=== PATIENT | male | born 1965 | race Two or more races ===

== ENCOUNTER 2020-10-16 16:26 | Emergency (ER) | payer MEDICAID ==
[~2020-10-16] VITALS: Ht 160 cm; Wt 106.6 kg
[2020-10-16 16:30] VITALS: BP 148/100
== END 2020-10-16 17:19 | disposition home or self-care (01) ==
LOC: ER 16:26
DX: H10.31 Unspecified acute conjunctivitis, right eye (principal)

== ENCOUNTER 2021-12-24 21:51 | Inpatient (IN) | payer MEDICAID ==
[~2021-12-24] VITALS: Ht 165.1 cm; Wt 90.9 kg
[2021-12-24 22:27] LABS: Basophils # (auto) 0.1 10 ^3/uL (0-0.2); Basophils % (auto) 1.2 % (0.0-2.0); Eosinophils # (auto) 0.4 10 ^3/uL (0-0.8); Eosinophils % (auto) 3.8 % (0.0-7.0); Hematocrit 45.4 % (41.0-53.0); Hemoglobin 15.1 g/dL (13.5-17.5); Lymphocytes # (auto) 5.3 10 ^3/uL (0.4-5.4); Lymphocytes % (auto) 51.1 % (10.0-50.0); Mean Corpuscular Hemoglobin 27.8 pg (28.0-32.0); Mean Corpuscular Hgb Conc. 33.3 g/dL (32.0-36.0); Mean Corpuscular Volume 83.5 fL (80.0-100.0); Monocytes # (auto) 0.7 10 ^3/uL (0-1.3); Monocytes % (auto) 7.2 % (0.0-12.0); Neutrophils # (auto) 3.8 10 ^3/uL (1.6-8.6); Neutrophils % (auto) 36.7 % (37.0-80.0); Nucleated Red Blood Cells % 0.1 %; Red Blood Cells 5.43 10^6/uL (4.5-5.90); White Blood Cell 10.3 10^3/uL (4.4-10.8)
[2021-12-24 22:53] LABS: Potassium 3.1 mmol/L (3.5-5.1)
[2021-12-24 22:57] LABS: Albumin 3.9 g/dL (3.4-5.0); BUN/Creatinine Ratio 17.2; Calcium 8.7 mg/dL (8.5-10.1)
[2021-12-24 23:03] LABS: Bilirubin, Total 0.3 mg/dL (0.2-1.0)
[2021-12-25 01:41] LABS: Urine Bacteria NONE SEEN /hpf (None Seen); Urine Blood Negative /uL (Negative); Urine Hyaline Cast FEW /lpf (0 - 2); Urine Mucus FEW (None Seen); Urine WBC 1 /hpf (0 - 3)
[2021-12-25] MEDS ORDERED: TEMAZEPAM 15 MG CAP PO PRN (03:00)
[2021-12-25] MEDS ORDERED: ONDANSETRON HCL 4 MG/2 ML VIAL IV PRN (03:00)
[2021-12-25] MEDS ORDERED: MORPHINE SULFATE INJ 2 MG/ml SYRG IV PRN (03:00)
[2021-12-25] MEDS ORDERED: ACETAMINOPHEN 325 MG TAB PO PRN (03:00)
[2021-12-25] MEDS ORDERED: NITROGLYCERIN 0.4 MG SL TAB SL PRN (03:00)
[2021-12-25 08:05] VITALS: BP 115/81
[2021-12-25 09:00] VITALS: BP 115/81
[2021-12-25] MEDS ORDERED: ASPirin 81 mg TAB PO SCH (10:00)
[2021-12-25] MEDS ORDERED: PANTOPRAZOLE 40 MG TAB PO SCH (10:00)
[2021-12-25 13:00] VITALS: BP 120/74
== END 2021-12-25 14:08 | disposition home or self-care (01) | DRG 204 ==
LOC: ER 21:51 → TELE 12-25 02:47 → TELE-EAST 12-25 08:10
PROVIDERS: ADMIT Nurse Practitioner; ATTEND Internal Medicine
DX: R55 Syncope and collapse (principal); I95.9 Hypotension, unspecified; E03.9 Hypothyroidism, unspecified; Z20.822 Contact with and (suspected) exposure to COVID-19; E66.9 Obesity, unspecified; E87.6 Hypokalemia; R00.1 Bradycardia, unspecified; Z68.33 Body mass index [BMI] 33.0-33.9, adult
CPT/HCPCS: 36415; 70450; 71045; 80053; 81001; 84443; 84484; 85025; 93306; 93886; G0378

== ENCOUNTER 2022-06-23 13:49 | Emergency (ER) | payer MEDICAID ==
[~2022-06-23] VITALS: Ht 167.6 cm; Wt 101.6 kg
[2022-06-23] MEDS ORDERED: TETRACAINE HCL 0.5% OPTH(EYE) SOLN 4ML EACHEYE ONE (15:30)
[2022-06-23] MEDS ORDERED: FLUORESCEIN SOD OPTH TEST STRIP EACHEYE ONE (15:30)
[2022-06-23 15:50] VITALS: BP 144/93
[2022-06-23] MEDS ORDERED: ERY05OO OP (16:06)
== END 2022-06-23 18:05 | disposition home or self-care (01) ==
LOC: ER 13:49
DX: S05.02XA Injury of conjunctiva and corneal abrasion without foreign body, left eye, initial encounter (principal); S05.01XA Injury of conjunctiva and corneal abrasion without foreign body, right eye, initial encounter; W45.8XXA Other foreign body or object entering through skin, initial encounter; Y93.89 Activity, other specified; Y92.89 Other specified places as the place of occurrence of the external cause; Y99.8 Other external cause status